=== PATIENT | male | born 1960 | race Two or more races ===

== ENCOUNTER 2024-08-10 15:24 | Inpatient (IN) | payer MEDICAID, SELFPAY ==
[2024-08-10] VITALS (7 sets, daily range): BP systolic 125–153; BP diastolic 71–87; PULSE 73–88; RESP 12–19; TEMP 36–36.9; O2SAT 96–98; BMI 35.4
--- NOTE | 2024-08-10 16:00 | PC.NURSE ---
stroke consult Case # [id number]?
--- NOTE | 2024-08-10 16:01 | XR_ITS ---
Examination: CTA carotids with intravenous contrast CTA brain, head with intravenous contrast. 2-D sagittal, coronal reconstructions. 3-D reconstructions. Exam date and time: August 10, 2024 1626 hrs. Indications: Stroke alert, onset focal neurologic deficit today CTDI: vol (mGy) 54.7 DLP: (mGycm) 513 Technique: Multiple CTA axial brain, head carotid images post intravenous contrast injection 100 cc, Isovue-370. 2-D sagittal, coronal reconstructions. 3-D reconstructions, 3-D post processing including vascular maximum intensity projection images. Low dose protocols were performed. One or more of the following dose reduction techniques were used; automated exposure control, adjustment of the mA and/or KV according to patient size, use of iterative reconstruction technique. Findings: No thoracic aortic aneurysmal dilatation Common carotid arteries carotid bifurcations and internal carotid arteries do not demonstrate significant stenoses Dominant left vertebral artery, no critical vertebral artery stenoses in the neck Intracranial vertebral arteries basilar artery and posterior cerebral branches fill with no large vessel occlusions. Juxtasellar supraclinoid portions of the internal carotid arteries intact. M1 segments middle cerebral arteries middle cerebral artery trifurcation vessels and pericallosal vessels demonstrate no large vessel occlusions Impression: No significant neck arterial stenoses No cerebral large vessel arterial occlusions noted
--- NOTE | 2024-08-10 16:01 | EKG_ITS ---
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
--- NOTE | 2024-08-10 16:01 | XR_ITS ---
Examination: CT brain head without contrast. 2-D sagittal coronal reconstructions Date and time of exam:August 10, 2024 1608 hrs. Indications: Stroke alert, onset focal neurologic deficit today CTDI: vol (mGy):57 DLP: (mGycm):1115 Technique: Multiple CT axial sections of the brain have been obtained, 5 mm slice thickness. Contrast has not been administered. 2-D sagittal, coronal reconstructions have been obtained Low dose protocols were performed. One or more of the following dose reduction techniques were used; automated exposure control, adjustment of the mA and/or KV according to patient size, use of iterative reconstruction technique. Findings: No significant ventricular enlargement. Intra-axial or extra-axial hemorrhage density is not seen. No mass effect or midline shift Basal cisterns are not remarkable. Fourth ventricle is midline. Cranial vault intact. Impression: Negative for acute hemorrhage, mass effect or midline shift
--- NOTE | 2024-08-10 16:13 | PD.EDADULT ---
ED General RME/HPI General Chief complaint: Neuro Symptoms/Deficit Stated complaint: DIZZY, BLURRY VISION, TONGUE NUMBNESS Time Seen by Provider: 08/10/24 16:00 Arrival date/time: 08/10/24 15:24 Limitations: no limitations RME / HPI RME / HPI narrative: DR. BOLANOS MAIN ED EVALUATION: 63 year old male with past medical history significant for epilepsy presents to the Emergency Department with complaints of right facial weakness, right eyelid weakness, right facial droop, and diffuse tongue numbness. Last well known time was 10 AM today. Blood glucose was 224 here. No other symptoms reported at this time. Related Data Home Medications ?Medication ?Instructions ?Recorded ?Confirmed levetiracetam 1,000 mg tablet 1,500 mg PO BID 02/01/19 06/02/22 (Keppra) metformin 1,000 mg tablet 1,000 mg PO BID 02/01/19 06/02/22 sitagliptin phosphate 50 mg tablet 50 mg PO QDAY 12/22/21 06/02/22 (Januvia) glimepiride 2 mg tablet 2 mg PO DAILY 05/17/22 06/02/22 propranolol 10 mg tablet 10 mg PO DAILY 05/17/22 06/02/22 Previous Rx's ?Medication ?Instructions ?Recorded pantoprazole 40 mg tablet,delayed 40 mg PO BID #180 tabs 12/23/21 release (Protonix) ciprofloxacin HCl 500 mg tablet 500 mg PO BID #14 tabs 10/27/22 metronidazole 500 mg tablet 500 mg PO BID #14 tabs 10/27/22 doxycycline hyclate 100 mg tablet 100 mg PO BID #14 tabs 02/02/23 fluconazole 150 mg tablet 150 mg PO Q3D 2 doses #2 tabs 02/02/23 Allergies Allergy/AdvReac Type Severity Reaction Status Date / Time cat dander Allergy Intermediate Watery Eye Verified 02/02/23 10:25 Penicillins Allergy Intermediate Rash Verified 02/02/23 10:25 Review of Systems Review of Systems Systems Reviewed: All systems reviewed, normal except as documented Past Medical History Past Medical History NEUROLOGIC: Positive Neurological Disorders and Seizures CARDIAC: Positive Cardiac Disorders, Hypercholesterolemia and Hypertension RESPIRATORY: Positive Pneumonia GASTROINTESTINAL: Positive Gastrointestinal Disorders, Pancreatitis and Ulcer MUSCULOSKELETAL: Positive Musculoskeletal Disorders and Arthritis ENDOCRINE: Positive Endocrine Disorders and Diabetes Mellitus Type 2 OTHER HISTORY: Positive Chicken Pox, Measles and Mumps Family History FAMILY HISTORY: Positive Family Cancer Surgical History SURGICAL: Positive Oral Surgery, Tonsillectomy and Adenoidectomy Social History SMOKING STATUS: Never smoker SUBSTANCE USE: does not use ALCOHOL: Never ED Exam General Limitations: Present no limitations General appearance: Present alert and in no apparent distress Head Head exam: Present atraumatic, normocephalic and normal inspection Eye Eye exam: Present normal appearance, PERRL and EOMI; Absent nystagmus ENT ENT exam: Present normal exam, normal oropharynx and mucous membranes moist Neck Neck exam: Present normal inspection, full ROM and trachea midline Chest Chest inspection: Present normal inspection and symmetric chest wall rise Respiratory Respiratory exam: Present normal lung sounds bilaterally Cardiovascular Cardiovascular exam: Present regular rate, normal rhythm and normal heart sounds Abdominal Exam Abdominal exam: Present soft and normal bowel sounds Extremities Exam Extremities exam: Present normal inspection and full ROM Back Exam Back exam: Present normal inspection and full ROM Neurological Exam Neurological exam: Present alert, oriented X3 and other (right facial weakness, right eyelid weakness, right facial droop) Expanded Neurological Exam Patient oriented to: Present person, place and time Speech: Present fluid speech Cerebellar function: Normal: finger to nose and heel to marques Motor strength - LUE: 5/5 Motor strength - RUE: 5/5 Motor strength - LLE: 5/5 Motor strength - RLE: 5/5 Psychiatric Psychiatric exam: Present normal affect and normal mood Skin Skin exam: Present warm, dry, intact and normal color Course Course Course Narrative: 1558: Stroke alert initiated. Orders made at this time are congruent stroke protocol. Quality Measures none Orders Category Date Time Status Bedside Blood Glucose NOW Care 08/10/24 16:01 Completed COVID-19 Screening Questionnaire NOW Care 08/10/24 17:18 Active Agriculture Teacher NOW Care 08/10/24 16:01 Active Continuous Pulse Oximetry NOW Care 08/10/24 16:01 Completed Decision to Admit X1 Care 08/10/24 17:18 Active EKG (ED ONLY) *Do not use* NOW Care 08/10/24 16:01 Completed In and Out Catheter NEEDED Care 08/10/24 16:01 Active Insert IV NOW Care 08/10/24 16:01 Active NIH Stroke Scale now Care 08/10/24 16:01 Active NPO NOW Care 08/10/24 16:01 Active Neuro Check Q15MIN Care 08/10/24 16:01 Active Nurse Swallow Screen x1 Care 08/10/24 16:01 Active Consult to Neurology / Tele-Neurology Routine Cons 08/10/24 16:[address] angio stroke protocol Stat Exams 08/10/24 16:[address] stroke protocol Stat Exams 08/10/24 16:01 Completed EKG (ED Only) Stat Exams 08/10/24 16:01 Draft Alcohol, Blood Medical Stat Lab 08/10/24 16:00 Completed Arterial Blood Gas Stat Lab 08/10/24 16:48 Completed B-Type Natriuretic Peptide Stat Lab 08/10/24 16:00 Completed CBC Stat Lab 08/10/24 16:40 Completed Comprehensive Metabolic Panel Stat Lab 08/10/24 16:00 Completed Drug Screen,Urine Stat Lab 08/10/24 16:01 Ordered Magnesium Stat Lab 08/10/24 16:00 Completed Partial Thromboplastin Time Stat Lab 08/10/24 16:00 Completed Prothrombin Time with INR Stat Lab 08/10/24 16:00 Completed Troponin I Stat Lab 08/10/24 16:00 Completed Urinalysis Stat Lab 08/10/24 16:01 Ordered Urine Culture Stat Lab 08/10/24 16:01 Ordered Dexamethasone Inj [Decadron Inj] Med 08/10/24 16:35 Discontinued 10 mg .ROUTE .STK-MED ONE Dexamethasone Inj [Decadron Inj] Med 08/10/24 16:39 Discontinued 10 mg IVP X1 ONE DiphenhydrAMINE INJ [Benadryl Inj] Med 08/10/24 16:39 Discontinued 25 mg IVP X1 ONE DiphenhydrAMINE INJ [Benadryl Inj] Med 08/10/24 16:36 Discontinued 50 mg .ROUTE .STK-MED ONE Famotidine Inj [Pepcid Inj] Med 08/10/24 16:35 Discontinued 20 mg .ROUTE .STK-MED ONE Famotidine Inj [Pepcid Inj] Med 08/10/24 16:39 Discontinued 20 mg IVP X1 ONE Ondansetron Inj [Zofran Inj] Med 08/10/24 16:00 Active 4 mg IVP Q4HR PRN Sodium Chloride 0.9% 1000 ml [Ns] 1,000 ml Med 08/10/24 16:00 Active IV 100 mls/hr Oxygen Delivery NOW RT 08/10/24 17:10 Active Vital Signs Vital signs: Vital Signs Temperature 98.4 F 08/10/24 15:48 Pulse Rate 85 08/10/24 15:48 Respiratory Rate 19 08/10/24 15:48 Blood Pressure 127/83 08/10/24 15:48 Pulse Oximetry (%) 96 08/10/24 15:48 Oxygen Delivery Method Room Air 08/10/24 15:48 Critical Care Time Critical Care Time Critical Care Time: Yes Total Critical Care Time (min.): 45 Attestation: The high probability of sudden, clinically significant deterioration in the patient?s condition required the highest level of my preparedness to intervene urgently. The services I provided to this patient were to treat and/or prevent clinically significant deterioration. Services included the following: chart data review, reviewing nursing notes and/or old charts, documentation time, telesales consultant collaboration regarding findings and treatment options, medication orders and management, direct patient care, vital sign assessments and ordering, interpreting and reviewing diagnostic studies and lab tests. Aggregate critical care time includes only time during which I was engaged in work directly related to the patient?s care, as described above, whether at bedside or elsewhere in the Emergency Department. It did not include time spent performing other reported procedures or the services of residents, students, nurses or physician assistants. Discharge Plan Plan Patient Disposition: Admit Acute Care w/in Hospital Prescriptions/Referrals Prescriptions/Med Rec: No Action metformin 1,000 mg Tablet 1,000 mg PO BID levetiracetam [Keppra] 1,000 mg Tablet 1,500 mg PO BID fluconazole 150 mg tablet 150 mg PO Q3D Qty: 2 0RF doxycycline hyclate 100 mg tablet 100 mg PO BID Qty: 14 0RF Januvia 50 mg Tablet 50 mg PO QDAY pantoprazole [Protonix] 40 mg Tablet,Delayed Release (Dr/Ec) 40 mg PO BID Qty: 180 0RF glimepiride 2 mg tablet 2 mg PO DAILY propranolol 10 mg tablet 10 mg PO DAILY ciprofloxacin HCl 500 mg tablet 500 mg PO BID Qty: 14 0RF metronidazole 500 mg tablet 500 mg PO BID Qty: 14 0RF Referrals: No Primary/Family,Physician [Primary Care Provider] - In 1 week Problem List Clinical Impression: TIA (transient ischemic attack), Right-sided Calles's palsy, Cerebrovascular accident Patient/Caregiver Discharge Instructions Print Language: Djiboutian Stand Alone Forms: Fabienne Award Info., Patient Portal Info Letter MDM Narrative MDM hospital course: I, Robyn Wilkins, karin scribing for and in the presence of Dr. Bolanos. Clinical Information Provided by patient Medical Records Reviewed [facility] Meds/Rx Considered, not Ordered None Labs/Rad/Tests considered, not Ordered None Chronic Illness/Social Conditions Add or document further as needed: epilepsy EKG Interpretation EKG #1: Date/time of EK08/10/24 1651 hours EKG interpretation: sinus rhythm, rate 87, minimum ST depression, no STEMI, DE interval 167 ms, QRS duration 83 ms, QT/QTc 370/414, P-R-T axis 61, 17, 47 Imaging Radiology reports / interpretation(s): Procedure(s): CT angio stroke protocol Accession Number(s): [id number] cc: Adeel Bolanos MD; Caio Rankin MD; NO PRIMARY/FAMILY,PHYSICIAN~ Examination: CTA carotids with intravenous contrast CTA brain, head with intravenous contrast. 2-D sagittal, coronal reconstructions. 3-D reconstructions. Exam date and time: August 10, 2024 1626 hrs. Indications: Stroke alert, onset focal neurologic deficit today CTDI: vol (mGy) 54.7 DLP: (mGycm) 513 Technique: Multiple CTA axial brain, head carotid images post intravenous contrast injection 100 cc, Isovue-370. 2-D sagittal, coronal reconstructions. 3-D reconstructions, 3-D post processing including vascular maximum intensity projection images. Low dose protocols were performed. One or more of the following dose reduction techniques were used; automated exposure control, adjustment of the mA and/or KV according to patient size, use of iterative reconstruction technique. Findings: No thoracic aortic aneurysmal dilatation Common carotid arteries carotid bifurcations and internal carotid arteries do not demonstrate significant stenoses Dominant left vertebral artery, no critical vertebral artery stenoses in the neck Intracranial vertebral arteries basilar artery and posterior cerebral branches fill with no large vessel occlusions. Juxtasellar supraclinoid portions of the internal carotid arteries intact. M1 segments middle cerebral arteries middle cerebral artery trifurcation vessels and pericallosal vessels demonstrate no large vessel occlusions Impression: No significant neck arterial stenoses No cerebral large vessel arterial occlusions noted Dictated By: Caio Rankin MD Procedure(s): CT stroke protocol Accession Number(s): [id number] cc: Adeel Bolanos MD; Caio Rankin MD; NO PRIMARY/FAMILY,PHYSICIAN~ Examination: CT brain head without contrast. 2-D sagittal coronal reconstructions Date and time of exam:August 10, 2024 1608 hrs. Indications: Stroke alert, onset focal neurologic deficit today CTDI: vol (mGy):57 DLP: (mGycm):1115 Technique: Multiple CT axial sections of the brain have been obtained, 5 mm slice thickness. Contrast has not been administered. 2-D sagittal, coronal reconstructions have been obtained Low dose protocols were performed. One or more of the following dose reduction techniques were used; automated exposure control, adjustment of the mA and/or KV according to patient size, use of iterative reconstruction technique. Findings: No significant ventricular enlargement. Intra-axial or extra-axial hemorrhage density is not seen. No mass effect or midline shift Basal cisterns are not remarkable. Fourth ventricle is midline. Cranial vault intact. Impression: Negative for acute hemorrhage, mass effect or midline shift Dictated By: Caio Rankin MD Medication Administration(s) Medication Administration History Sodium Chloride (Ns) 1,000 mls @ 100 mls/hr IV .Q10H JASMYNE Stop: 09/09/24 15:59 Last Admin: 08/10/24 16:49 Dose: 100 mls/hr Documented By: ROYER Ondansetron HCl (Ondansetron Inj 2 Mg/Ml Inj 2 Ml) 4 mg IVP Q4HR PRN PRN Reason: NAUSEA OR VOMITING Stop: 09/09/24 15:59 Discontinued Medications Dexamethasone Sodium Phosphate (Dexamethasone Sod Phos Inj 10 Mg/Ml Vial) 10 mg IVP X1 ONE Stop: 08/10/24 16:40 Last Admin: 08/10/24 16:47 Dose: 10 mg Documented By: EF Dexamethasone Sodium Phosphate (Dexamethasone Sod Phos Inj 10 Mg/Ml Vial) Confirm Administered Dose 10 mg .ROUTE .STK-MED ONE Stop: 08/10/24 16:36 Last Admin: 08/10/24 16:46 Dose: Not Given Documented By: EF Non-Admin Reason: Override Medication Diphenhydramine HCl (Diphenhydramine Inj 50 Mg/Ml Vial) 25 mg IVP X1 ONE Stop: 08/10/24 16:40 Last Admin: 08/10/24 16:47 Dose: 25 mg Documented By: EF Comments: Diphenhydramine HCl (Diphenhydramine Inj 50 Mg/Ml Vial) Confirm Administered Dose 50 mg .ROUTE .STTHE MELT-MED ONE Stop: 08/10/24 16:37 Last Admin: 08/10/24 16:46 Dose: Not Given Documented By: EF Non-Admin Reason: Override Medication Famotidine (Famotidine Inj 10 Mg/Ml Vial 2 Ml) 20 mg IVP X1 ONE Stop: 08/10/24 16:40 Last Admin: 08/10/24 16:47 Dose: 20 mg Documented By: EF Famotidine (Famotidine Inj 10 Mg/Ml Vial 2 Ml) Confirm Administered Dose 20 mg .ROUTE .[employer]-MED ONE Stop: 08/10/24 16:36 Last Admin: 08/10/24 16:46 Dose: Not Given Documented By: EF Non-Admin Reason: Override Medication Consultations/Discussions re: Management Consult #1: Date/time: 08/10/24 5:15 pm Physician, specialty, service, details: Discussed test HPI, PMHx, lab, radiology results and/or management with resident working with the hospitalist. Will admit for further evaluation and management. Accepts patient for admission. Diagnosis Differential diagnosis: TIA, CVA, brain bleed Most likely dx, and/or detailed dx discussion: CVA TIA Right-sided Calles's palsy Dispositon Disposition: Admit
--- NOTE | 2024-08-10 16:30 | PRELIM_ITS ---
CT scan of the head without intravenous contrast (axial sections with sagittal, coronal and 3D reformats) August 10, 2024 1606 hours Clinical history: Focal neuro deficit, stroke suspected. Comparison: None. Findings: There is no evidence of intracranial hemorrhage, mass effect or midline shift. There is encephalomalacia in bilateral basifrontal and left anterior temporal lobes, which may be related to old trauma or infarcts. There are periventricular white matter hypodensities, compatible with chronic small vessel ischemia. There is mild volume loss. The calvarium is unremarkable. The mastoid air cells and the visualized paranasal sinuses are clear. Impression: No evidence of intracranial hemorrhage, mass effect or midline shift. If there are persistent clinical symptoms or additional clinical concerns, consider MRI. Encephalomalacia in bilateral basifrontal and left anterior temporal lobes, which may be related to old trauma or infarcts. Chronic small vessel ischemia and volume loss. Discussion Details: Results verbally communicated to Leroy Hussein RN at 19:27 PM ET 08/10/2024. A call back number was provided for a Physician to Physician call communication. Report Electronically Signed By: Catherine Chow 08/10/2024 4:30:03 PM [EST]
[2024-08-10 16:37] LABS: INR 1.4 (0.9-1.3); Partial Thromboplastin Time 20.7 Seconds (22.0-36.0); Prothrombin Time 15.1 Seconds (9.0-12.2)
[2024-08-10 16:38] LABS: B-Type Natriuretic Peptide 60 pg/mL (0-100)
[2024-08-10 16:39] LABS: Alanine Aminotransferase 48 U/L (10-49); Albumin, Serum 3.9 gm/dL (3.4-4.8); Albumin/Globulin Ratio 1.4 (1.2-2.2); Alcohol, Blood Medical < 3.0 mg/dL (0-10.0); Alkaline Phosphatase 113 U/L (46-116); Anion Gap 11 (7-16); BUN/Creatinine Ratio 11 Ratio (12-20); Blood Urea Nitrogen 9 mg/dL (9-23); Calcium 8.6 mg/dL (8.3-10.6); Calcium (Corrected) 8.7 mg/dL (8.5-10.1); Carbon Dioxide 21.9 mMol/L (20.0-31.0); Chloride 107 mMol/L (98-107); Creatinine (Component) 0.8 mg/dL (0.6-1.3); Estimated Creatinine Clearance 91.7 mL/min (>60); Globulin 2.8 gm/dL (2.3-3.5); Glucose 253 mg/dL (74-106); Magnesium 1.9 mg/dL (1.6-2.6); Osmolality,Calculated 287 (275-295); Potassium 4.1 mMol/L (3.4-5.1); Sodium 140 mMol/L (136-145); Total Protein 6.7 gm/dL (5.7-8.2); Troponin I < 0.002 ng/mL (0.0-0.045); eGFR > 60 See Note
[2024-08-10] MEDS: DiphenhydrAMINE INJ 50 MG/ML VIAL 25 MG IVP (16:47)
[2024-08-10] MEDS: FAMOTIDINE INJ 10 MG/ML VIAL 2 ML 20 MG IVP (16:47)
[2024-08-10] MEDS: DEXAMETHASONE SOD PHOS INJ 10 MG/ML VIAL IVP (16:47)
[2024-08-10] MEDS: SODIUM CHLORIDE 0.9% 1000 ML 1,000 ML 100 ML IV ×2 (16:49→23:22)
[2024-08-10 16:50] LABS: Basophils % (Auto) 1 % (0-2.5); Eosinophils # (Auto) 0.1 Thou/mm3 (0.0-0.5); Eosinophils % (Auto) 3 % (0-10); Hemoglobin 12.3 g/dL (13.5-16.0); Immature Granulocytes % (Auto) 0 % (0-0); Immature Granulocytes Auto 0.01 Thou/mm3 (0.00-0.00); Lymphocytes # (Auto) 1.7 Thou/mm3 (1.0-4.8); Lymphocytes % (Auto) 42 % (10-50); Mean Corpuscular HGB Conc 36.2 g/dl (31.0-37.0); Mean Corpuscular Hemoglobin 32.7 pg (25.0-35.0); Mean Corpuscular Volume 90 fL (80-100); Monocytes # (Auto) 0.6 Thou/mm3 (0.0-0.8); Monocytes % (Auto) 14 % (0-12); Neutrophils # (Auto) 1.5 Thou/mm3 (1.8-7.7); Neutrophils % (Auto) 39 % (37-80); Nucleated Red Blood Cell % 0 /100 WBC (0); RDW Standard Deviation 43.7 fL (35.1-43.9); Red Blood Count 3.76 Miln/mm3 (4.50-5.90); White Blood Count 3.9 Thou/mm3 (3.8-10.6)
[2024-08-10 17:00] LABS: Base Excess -3 (-3-3); HCO3 23 mEq/L (20-26); Inspired Oxygen, FIO2 21 %; O2 Saturation 76 % (91-98); PCO2 45 mmHg (32.0-48.0); pH, Arterial 7.32 (7.35-7.45)
[2024-08-10 17:04] LABS: Allen Test Performed/OK; PO2 42 mmHg (83-108); Puncture Site Right Radial
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
[2024-08-10 17:13] LABS: Platelet Count 76 Thou/mm3 (140-440); Slide Review Platelets confirmed
[2024-08-10 17:34] LABS: Collection Type, Urine Catheter; Squamous Epithelial Cell,Urine 0 /hpf (0-5); WBC,Urine 0 /hpf (0-5)
[2024-08-10 17:38] LABS: Bilirubin,Urine Negative (Negative); Blood,Urine Negative (Negative); Clarity,Urine Clear (Clear/Hazy); Color,Urine Lt-Yellow (Lt Yel-Yel); Glucose, Urine 4+ (Negative); Ketones,Urine Negative (Negative); Leukocyte Esterase,Urine Negative (Negative); Nitrite,Urine Negative (Negative); Protein,Urine Negative (Neg - Trace); RBC,Urine 1 /hpf (0-3); Specific Gravity,Urine 1.036 (1.001-1.035); Urobilinogen,Urine Negative mg/dL (0.0-1.0)
[2024-08-10 17:46] LABS: Amphetamine/Methamp Scrn,U Negative (Negative); Barbiturate Screen,Urine Negative (Negative); Benzodiazepines Screen,Urine Negative (Negative); Benzoylecgonine Screen, Ur Negative (Negative); Fentanyl Screen,Urine Negative (Negative); Opiate Screen,Urine Negative (Negative); THC Screen,Urine Negative (Negative)
--- NOTE | 2024-08-10 18:07 | ECHO_ITS ---
Transthoracic Echo Report Ht (in): 63 Wt (lb): 200 Exam Location: Echo Lab Status: Emergency Patient Care Secretary: Tamera Alfaro Indications: Procedure Performed: BP: 132 / 72 HR: 72 Technical Quality: Technically difficult study MEASUREMENTS (Male / Female) Normal Values 2D ECHO LV Diastolic Diameter PLAX 4.7 cm 4.2 - 5.9 / 3.9 - 5.3 cm LV Systolic Diameter PLAX 2.9 cm IVS Diastolic Thickness 1.1 cm 0.6 - 1.0 / 0.6 - 0.9 cm LVPW Diastolic Thickness 1.0 cm 0.6 - 1.0 / 0.6 - 0.9 cm LV Relative Wall Thickness 0.4 LVOT Diameter 1.8 cm M-MODE Aortic Root Diameter MM 2.3 cm LA Systolic Diameter MM 3.6 cm LA Ao Ratio MM 1.6 AV Cusp Separation MM 1.9 cm DOPPLER PV Peak Velocity 122.0 cm/s PV Peak Gradient 6.0 mmHg FINDINGS Left Ventricle Normal left ventricular size, wall thickness, systolic function with no obvious regional wall motion abnormalities. Normal left ventricular diastolic filling pattern for age. The ejection fraction is visually estimated at 55-60 %. Right Ventricle The right ventricle is normal in size and systolic function. Left Atrium The left atrium is normal by two-dimensional, color flow and Doppler imaging with no structural abnormalities, no thrombus formation present. Right Atrium The right atrium is normal by two-dimensional imaging, color flow and Doppler imaging with no structural abnormalities, no thrombus formation present. Atrial Septum The interatrial septum appears normal with no evidence of a shunt. Aorta The aorta is normal by two-dimensional, color flow and Doppler interrogation. Mitral Valve The mitral valve is normal by two-dimensional, color flow and Doppler interrogation. Trace mitral regurgitation. Aortic Valve The aortic valve is trileaflet and normal by two-dimensional, color flow and Doppler interrogation. There is no significant aortic valve regurgitation. Tricuspid Valve The tricuspid valve is normal by two-dimensional, color flow and Doppler interrogation. There is trace tricuspid valve regurgitation. Pulmonic Valve The pulmonic valve is not well visualized. There is no significant pulmonic valve regurgitation. Vessels The pulmonary artery appears normal. The inferior vena cava pulmonary and hepatic veins appear normal. Pericardium The pericardium is normal by two-dimensional imaging. There is no significant pericardial effusion. CONCLUSIONS Indication: Stroke R/O bubble study No evidence of PFO Negative Bubble study Normal LV size and function. Normal left ventricular diastolic function. Estimated at 55-60 %. The RV is normal in size and systolic function. Trace MR and TR. Debbi Hensley (Electronically Signed) Final Date: 12 August 2024 17:08
--- NOTE | 2024-08-10 18:21 | PD.RESHP ---
Documentation for date of: 08/10/24 [facility] History of Present Illness History of present illness: 63-year-old male with a past medical history of diabetes and seizure disorder, presenting from home with complaints of right-sided weakness and numbness that began this morning. The patient reported that upon waking, he noticed right ear pain, a headache, and numbness on the right side of his face, along with weakness in his right upper and lower extremities. While drinking coffee, he also noted numbness on the right side of his tongue. He denied any nausea, vomiting, loss of consciousness, drooling, or speech disturbances. He has no prior history of stroke or similar symptoms. The patient has a history of seizure disorder and takes Keppra; however, he has not experienced a seizure in the past 10 years. On presentation, the patient was hemodynamically stable. A stroke alert was initiated, and a teleneurology consultation was requested. CT head imaging was negative for hemorrhagic stroke, mass effect, or midline shift. CTA was also negative for large vessel occlusion . The patient was not a candidate for tPA, as the last well-known time was greater than 4 hours prior to presentation. Teleneurology recommended admission for further stroke workup, including MRI. Laboratory results were significant for anemia (hemoglobin 12.2) and thrombocytopenia (platelets 74), while the remainder of the CMP was within normal limits. Past medical history as above Past surgical history none Allergies penicillins Medications, metformin, Januvia, Keppra Social history denies smoking, alcohol, lives with his son Exam Vital Signs Temp Pulse Resp BP Pulse Ox O2 Del Method O2 Flow Rate 98.4 F 77 12 127/83 98 Room Air 2 08/10/24 15:48 08/10/24 18:08 08/10/24 18:08 08/10/24 15:48 08/10/24 18:08 08/10/24 15:48 08/10/24 18:08 Narrative Exam GENERAL: no acute distress, AAO x3, well nourished. HEENT: Head AT/ NC. Mucous membranes moist. NECK: Supple, no lymphadenopathy, no carotid bruits. CARDIOVASCULAR: RRR. Normal S1/S2, No m/r/g. No pitting edema of bilateral LEs. RESPIRATORY: CTAB. No wheezing, rhonchi, crackles. GASTROINTESTINAL: Abdomen soft, non tender no palpable masses. Bowel sounds present in all 4 quadrants. MUSCULOSKELETAL:? No cyanosis or edema, no visible joint swelling. NEUROLOGICAL: Right lower facial droop, sensation decreased in the right side of the face, strength normal on left side, slightly decreased on the right side. decreased light touch, pinprick and proprioception on right face, finger/nose/finger intact. PSYCHIATRIC: Awake and alert, not agitated, normal mood and affect. INTEGUMENTARY: No obvious rashes, no jaundice, normal turgor. Results: Labs 08/10/24 16:40 08/10/24 16:00 Labs: Short CBC 08/10/24 Range/Units 16:40 WBC 3.9 (3.8-10.6) Thou/mm3 Hgb 12.3 L (13.5-16.0) g/dL Hct 34.0 L (41.0-53.0) % Plt Count 76 L (140-440) Thou/mm3 BMP 08/10/24 16:00 Sodium 140 Potassium 4.1 Chloride 107 Carbon Dioxide 21.9 BUN 9 Creatinine 0.8 Glucose 253 H Calcium 8.6 Cardiac Enzymes 08/10/24 Range/Units 16:00 Troponin I < 0.002 (0.0-0.045) ng/mL Liver Function 08/10/24 Range/Units 16:00 Total Bilirubin 1.0 (0.3-1.2) mg/dL ALT 48 (10-49) U/L Alkaline Phosphatase 113 (46-116) U/L Albumin 3.9 (3.4-4.8) gm/dL Urine 08/10/24 Range/Units 17:22 Urine Color Lt-Yellow (Lt Yel-Yel) Urine Clarity Clear (Clear/Hazy) Urine pH 6.0 (5.0-7.0) Ur Specific Spreckels 1.036 H (1.001-1.035) Urine Protein Negative (Neg - Trace) Urine Glucose (UA) 4+ A (Negative) ABG Interpretation ABG results: 08/10/24 16:48 ABG pH 7.32 L ABG pCO2 45 ABG pO2 42 L* ABG HCO3 23 ABG O2 Saturation 76 L ABG Base Excess -3 Quality Measures Quality Measures none Advance care planning discussed with:: patient Medications Home Medications and Allergies Home Medications ?Medication ?Instructions ?Recorded ?Confirmed ?Type levetiracetam 1,000 mg tablet 1,500 mg PO BID 02/01/19 06/02/22 History (Keppra) metformin 1,000 mg tablet 1,000 mg PO BID 02/01/19 06/02/22 History sitagliptin phosphate 50 mg tablet 50 mg PO QDAY 12/22/21 06/02/22 History (Januvia) glimepiride 2 mg tablet 2 mg PO DAILY 05/17/22 06/02/22 History propranolol 10 mg tablet 10 mg PO DAILY 05/17/22 06/02/22 History Allergies Allergy/AdvReac Type Severity Reaction Status Date / Time cat dander Allergy Intermediate Watery Eye Verified 02/02/23 10:25 Penicillins Allergy Intermediate Rash Verified 02/02/23 10:25 Visit Medications Acetaminophen (Acetaminophen 325 Mg Tablet) 650 mg PO Q6H PRN PRN Reason: PAIN OR FEVER > 101 Stop: 09/09/24 18:06 Aspirin (Aspirin Ec 81 Mg Tabec) 81 mg PO QDAY [facility] Stop: 09/10/24 08:59 Atorvastatin Calcium (Atorvastatin Calcium 20 Mg Tablet) 40 mg PO HS JASMYNE Stop: 09/09/24 20:59 Dextrose (Dextrose 50%-Water Inj 50 Ml Syringe) 25 ml IV Q15MIN PRN PRN Reason: BG 50-70 responsive npo pt Stop: 09/09/24 18:12 Dextrose (Dextrose 50%-Water Inj 50 Ml Syringe) 50 ml IV Q15MIN PRN PRN Reason: BG <50 OR BG <70 & pt unresponsive Stop: 09/09/24 18:12 Glucagon (Glucagon Inj 1 Mg Vial) 1 mg IM Q15MIN PRN PRN Reason: BG <70, and no IV access Sodium Chloride (Ns) 1,000 mls @ 100 mls/hr IV .Q10H JASMYNE Stop: 09/09/24 15:59 Last Admin: 08/10/24 16:49 Dose: 100 mls/hr Insulin Human Lispro (Insulin Lispro (Admelog) 1 Unit/0.01 Ml Unit) 0 unit SC Q6HR JASMYNE; Protocol Stop: 09/10/24 00:00 Labetalol HCl (Labetalol Inj 5 Mg/Ml Vial 20 Ml) 10 mg IVP Q6H PRN PRN Reason: hypertension Stop: 09/09/24 18:14 Levetiracetam (Levetiracetam Inj 100 Mg/Ml Vial 5ml) 1,000 mg IVP Q12HR JASMYNE Stop: 09/09/24 20:59 Ondansetron HCl (Ondansetron Inj 2 Mg/Ml Inj 2 Ml) 4 mg IVP Q4HR PRN PRN Reason: NAUSEA OR VOMITING Stop: 09/09/24 15:59 Pantoprazole Sodium (Pantoprazole Inj 40 Mg Vial) 40 mg IVP QDAY JASMYNE Stop: 09/10/24 08:59 Discontinued Medications Aspirin (Aspirin 300 Mg Supp) 300 mg UT X1 ONE Stop: 08/10/24 18:08 Dexamethasone Sodium Phosphate (Dexamethasone Sod Phos Inj 10 Mg/Ml Vial) 10 mg IVP X1 ONE Stop: 08/10/24 16:40 Last Admin: 08/10/24 16:47 Dose: 10 mg Diphenhydramine HCl (Diphenhydramine Inj 50 Mg/Ml Vial) 25 mg IVP X1 ONE Stop: 08/10/24 16:40 Last Admin: 08/10/24 16:47 Dose: 25 mg Famotidine (Famotidine Inj 10 Mg/Ml Vial 2 Ml) 20 mg IVP X1 ONE Stop: 08/10/24 16:40 Last Admin: 08/10/24 16:47 Dose: 20 mg Assessment & Plan Plan 63-year-old male with past medical history of diabetes, seizure on Keppra was presented with chief complaints of dizziness, right-sided weakness and was admitted for stroke workup #Dizziness #Right-sided weakness/numbness #Right facial droop Patient presented with chief complaints of dizziness, right-sided weakness and numbness Physical exam :right lower facial droop, sensation decreased in the right side of the face, strength normal on left side, slightly decreased on the right side. Decreased light touch, pinprick and proprioception on right face, NIHH score was 5 CT head was negative for hemorrhage, mass or midline shift CTA was negative for LVO Activate stroke protocol order set NIHSS score 5 Patient is not a candidate for Thrombolytic therapy,LWK above 4.5 hours. -Admit to telemetry -Neurochecks every 4 -Permissive hypertension -Seizure precaution -Head of bed elevation 30 degree -N.p.o. for now -Bedside swallow evaluation -Aspirin 81 mg daily -Lipitor 40 mg daily -Tylenol as needed to avoid hyperthermia -Euglycemia state -Hemoglobin A1c ordered, follow-up with results -MRI without contrast -Echo ordered -Dr Fajardo was consulted, recommendations appreciated -Physical therapy evaluation. -DVT prophylaxis with SCDs due to risk of bleeding -Control risk factors such as HTN, HLD -Continue to closely monitor and follow-up with results #History of diabetes Home medication is metformin and Januvia -Insulin sliding scale -Follow-up with A1c #History of seizure -Resume home Keppra -Will follow-up neuro recs Disposition: Telemetry DVT prophylaxis: SCDs GI prophylaxis: PPI Diet: N.p.o. Lines: PIV CODE STATUS:Full code Patient care was discussed with attending physician Dr. Phong Cedillo MD PGY-2 Attending Provider Attestation/Addendum I Ifeoma Darling MD reviewed the note and agree with the resident's assessment & plan with exceptions as below. I have personally reviewed labs, imaging, home meds/prior records, examined the patient, formulated and discussed management plan with the IM team. A 63-year-old M with Hx of DM, seizure disorder and history of GI bleed around 2 years ago presented to ED with right-sided facial droop numbness and relative weakness on right upper and lower extremities. Stroke alert was called however patient did not get tPA due to out of window and thrombocytopenia. CT head and CT head and neck unremarkable. Obtain MRI, echocardiogram and continue with aspirin and high intensity statin therapy. Neurology is on board would likely plan for DAPT for 3 weeks. Additionally would also obtain ultrasound liver to evaluate for thrombocytopenia and clinical stigmata of fatty liver.
--- NOTE | 2024-08-10 18:43 | XR_ITS ---
Examination: Abdomen sonogram, Limited Date and time of exam: August 10, 2024 1914 hours INDICATIONS: Elevated liver function tests on laboratory examination today Technique: Real-time louis scale transabdominal sonographic images of the upper abdomen obtained. Findings: Normal gallbladder Normal common bile duct 0.2 cm Pancreatic head 3.4 cm Liver 16.4 cm irregular contour fatty infiltration Normal hepatopedal portal venous flow Patent IVC IMPRESSION: Normal gallbladder Cirrhosis versus primary hepatocellular disease
[2024-08-10] MEDS: ASPIRIN 81 MG CHEW PO (18:53)
[2024-08-10] MEDS: ATORVASTATIN CALCIUM 20 MG TABLET 40 MG PO (21:57)
[2024-08-10] MEDS: levETIRAcetam INJ 100 MG/ML VIAL 5ML 1000 MG IVP (21:58)
[2024-08-10] MEDS: INSULIN LISPRO (AdmeLOG) 1 UNIT/0.01 ML UNIT SC (23:16)
[2024-08-10] MEDS: ACETAMINOPHEN 325 MG TABLET 650 MG PO (23:52)
[2024-08-11] VITALS (9 sets, daily range): BP systolic 115–132; BP diastolic 64–95; PULSE 72–98; RESP 15–20; TEMP 36.2–36.9; O2SAT 96–99; BMI 37.8
[2024-08-11] MEDS: INSULIN LISPRO (AdmeLOG) 1 UNIT/0.01 ML UNIT SC ×4 (05:12→20:40)
[2024-08-11 06:15] LABS: Basophils % (Auto) 0 % (0-2.5); Eosinophils % (Auto) 0 % (0-10); Hematocrit 36.1 % (41.0-53.0); Hemoglobin 12.6 g/dL (13.5-16.0); Immature Granulocytes % (Auto) 0 % (0-0); Immature Granulocytes Auto 0.02 Thou/mm3 (0.00-0.00); Lymphocytes # (Auto) 1.1 Thou/mm3 (1.0-4.8); Lymphocytes % (Auto) 20 % (10-50); Mean Corpuscular HGB Conc 34.9 g/dl (31.0-37.0); Mean Corpuscular Hemoglobin 32.1 pg (25.0-35.0); Mean Corpuscular Volume 92 fL (80-100); Monocytes # (Auto) 0.1 Thou/mm3 (0.0-0.8); Monocytes % (Auto) 2 % (0-12); Neutrophils # (Auto) 4.3 Thou/mm3 (1.8-7.7); Neutrophils % (Auto) 77 % (37-80); Nucleated Red Blood Cell % 0 /100 WBC (0); Platelet Count 88 Thou/mm3 (140-440); RDW Standard Deviation 43.7 fL (35.1-43.9); Red Blood Count 3.93 Miln/mm3 (4.50-5.90); White Blood Count 5.5 Thou/mm3 (3.8-10.6)
[2024-08-11 07:17] LABS: Alanine Aminotransferase 44 U/L (10-49); Albumin, Serum 3.6 gm/dL (3.4-4.8); Albumin/Globulin Ratio 1.3 (1.2-2.2); Alkaline Phosphatase 97 U/L (46-116); Anion Gap 10 (7-16); BUN/Creatinine Ratio 14 Ratio (12-20); Bilirubin,Total 1.3 mg/dL (0.3-1.2); Blood Urea Nitrogen 10 mg/dL (9-23); Calcium 8.5 mg/dL (8.3-10.6); Calcium (Corrected) 8.8 mg/dL (8.5-10.1); Cardiac Risk Estimate 2.1 RATIO (4.0-6.7); Chloride 109 mMol/L (98-107); Cholesterol 118 mg/dL (132-200); Creatinine (Component) 0.7 mg/dL (0.6-1.3); Estimated Creatinine Clearance 108.6 mL/min (>60); Globulin 2.8 gm/dL (2.3-3.5); Glucose 184 mg/dL (74-106); HDL Cholesterol 55 mg/dL (40-60); LDL Cholesterol,Calculated 53 mg/dL (0-130); Magnesium 1.8 mg/dL (1.6-2.6); Osmolality,Calculated 287 (275-295); Phosphorous 1.9 mg/dL (2.4-5.1); Potassium 4.5 mMol/L (3.4-5.1); Sodium 142 mMol/L (136-145); Thyroid Stimulating Hormone 0.47 uIU/mL (0.55-4.78); Total Protein 6.4 gm/dL (5.7-8.2); Triglycerides 52 mg/dL (30-150); eGFR > 60 See Note
[2024-08-11 07:31] LABS: Glucose Estimated Average 137 mg/dL (80-131); Hemoglobin A1C 6.4 % Hgb (4.8-6.0)
[2024-08-11] MEDS: PANTOPRAZOLE INJ 40 MG VIAL IVP (08:29)
[2024-08-11] MEDS: levETIRAcetam INJ 100 MG/ML VIAL 5ML 1000 MG IVP ×2 (08:29→20:47)
[2024-08-11] MEDS: ASPIRIN EC 81 MG TABEC PO (08:30)
[2024-08-11] MEDS: NAPH,KPH MBDB 1 PACKET (1.5 GM) PO (09:18)
--- NOTE | 2024-08-11 09:20 | PC.SS ---
Patient Jay Burns is a 63 Year old male admitted for Stroke. SS made contact with patient at bedside? to complete initial and discuss discharge disposition. Role and reason for the contact was explained to Patient. Demographic information was verified.? Pt? identified his son, Jay Sabillon as his surrogate decision maker [phone]. He is independent with all ADLs. Patient does not utilize any source of DME, or home O2. Patient?s choice of pharmacy is [facility]. At time of discharge patient will return home, son will provide transportation. Discharge plan: Home Next of Kin: Son Jay Sabillon [phone]
[2024-08-11] MEDS: SODIUM CHLORIDE 0.9% 1000 ML 1,000 ML 100 ML IV ×2 (10:11→21:42)
--- NOTE | 2024-08-11 10:45 | PC.SS ---
SS follow up note; Pending Neuro Rec's. Patient will discharge home when medically cleared.
--- NOTE | 2024-08-11 12:02 | ESPR_ITS ---
<Statement entered by Karla Raygoza MD - 08/23/24 14:04> I reviewed above note and agree with findings and plans. I have also personally examined the patient with medicine team and went over assessment and plan with medical team including pharmacy grad intern and resident physician. Documentation for date of: 08/11/24 Subjective Subjective Interval history: Patient was seen and examined at bedside. No acute overnight events. Patient is still complaining of right side weakness and numbness, however appears to be better compared to yesterday. Still pending stroke workup including MRI, echo, will follow-up with neurorecommendations. Currently patient is on aspirin and atorvastatin, for seizure Keppra restarted. Renal ultrasound was done yesterday with which revealed primary hepatocellular disease possible, labs were reviewed, phosphorus was 1.9 which was replaced Continue current management, follow-up with MRI, echo results, neurorecommendations, PT evaluation. Exam Vital Signs Temp Pulse Resp BP Pulse Ox O2 Del Method O2 Flow Rate 97.1 F 72 16 132/72 H 99 Nasal Cannula 2 08/11/24 08:00 08/11/24 08:00 08/11/24 08:00 08/11/24 08:00 08/11/24 08:00 08/11/24 08:00 08/11/24 08:00 Narrative Exam GENERAL: no acute distress, AAO x3, well nourished. HEENT: Head AT/ NC. Mucous membranes moist. NECK: Supple, no lymphadenopathy, no carotid bruits. CARDIOVASCULAR: RRR. Normal S1/S2, No m/r/g. No pitting edema of bilateral LEs. RESPIRATORY: CTAB. No wheezing, rhonchi, crackles. GASTROINTESTINAL: Abdomen soft, non tender no palpable masses. Bowel sounds present in all 4 quadrants. MUSCULOSKELETAL:? No cyanosis or edema, no visible joint swelling. NEUROLOGICAL: Right lower facial droop, sensation decreased in the right side of the face, strength normal on left side, slightly decreased on the right side. decreased light touch, pinprick and proprioception on right face, finger/nose/finger intact. PSYCHIATRIC: Awake and alert, not agitated, normal mood and affect. INTEGUMENTARY: No obvious rashes, no jaundice, normal turgor. Objective Labs 08/11/24 05:41 08/11/24 05:41 Labs: Laboratory Results - last 24 hr 08/10/24 08/10/24 08/10/24 16:00 16:40 16:48 WBC 3.9 RBC 3.76 L Hgb 12.3 L Hct 34.0 L MCV 90 MCH 32.7 MCHC 36.2 RDW Std Deviation 43.7 Plt Count 76 L Neut % (Auto) 39 Lymph % (Auto) 42 [place] % (Auto) 14 H Eos % (Auto) 3 Baso % (Auto) 1 Neut # (Auto) 1.5 L Lymph # (Auto) 1.7 [place] # (Auto) 0.6 Eos # (Auto) 0.1 Baso # (Auto) 0.0 Immature Gran # (Auto) 0.01 H Absolute Nucleated RBC 0.00 Immature Gran % 0 Nucleated RBC % 0 PT 15.1 H INR 1.4 H APTT 20.7 L Puncture Site Right Radial ABG pH 7.32 L ABG pCO2 45 ABG pO2 42 L* ABG HCO3 23 ABG O2 Saturation 76 L ABG Base Excess -3 FiO2 21 Sodium 140 Potassium 4.1 Chloride 107 Carbon Dioxide 21.9 Anion Gap 11 BUN 9 Creatinine 0.8 Estim Creat Clear Calc 91.7 eGFR > 60 BUN/Creatinine Ratio 11 L Glucose [address] Glu mg/dL Hemoglobin A1c Calculated Osmolality 287 Calcium 8.6 Corrected Calcium 8.7 Phosphorus Magnesium 1.9 Total Bilirubin 1.0 ALT 48 Alkaline Phosphatase 113 Troponin I < 0.002 B-Natriuretic Peptide 60 Total Protein 6.7 Albumin 3.9 Globulin 2.8 Albumin/Globulin Ratio 1.4 Triglycerides Cholesterol LDL Cholesterol, Calc HDL Cholesterol Cholesterol/HDL Ratio TSH Ur Collection Type Urine Color Urine Clarity Urine pH Ur Specific [place] Urine Protein Urine Glucose (UA) Urine Ketones Urine Blood Urine Nitrite Urine Bilirubin Urine Urobilinogen (Auto) Ur Leukocyte Esterase Urine RBC Urine WBC Ur Squamous Epith Cells Urine Bacteria Urine Opiates Screen Urine Fentanyl Screen Ur Barbiturates Screen U Amphetamin/Meth Scrn U Benzodiazepines Scrn U Cocaine Metab Screen U Marijuana (THC) Screen Ethyl Alcohol < 3.0 Misc Test Result Platelets confirmed 08/10/24 08/11/24 17:22 05:41 WBC 5.5 D RBC 3.93 L Hgb 12.6 L Hct 36.1 L MCV 92 MCH 32.1 MCHC 34.9 RDW Std Deviation 43.7 Plt Count 88 L Neut % (Auto) 77 Lymph % (Auto) 20 [place] % (Auto) 2 Eos % (Auto) 0 Baso % (Auto) 0 Neut # (Auto) 4.3 Lymph # (Auto) 1.1 [place] # (Auto) 0.1 Eos # (Auto) 0.0 Baso # (Auto) 0.0 Immature Gran # (Auto) 0.02 H Absolute Nucleated RBC 0.00 Immature Gran % 0 Nucleated RBC % 0 PT INR APTT Puncture Site ABG pH ABG pCO2 ABG pO2 ABG HCO3 ABG O2 Saturation ABG Base Excess FiO2 Sodium 142 Potassium 4.5 Chloride 109 H Carbon Dioxide 23.0 Anion Gap 10 BUN 10 Creatinine 0.7 Estim Creat Clear Calc 108.6 eGFR > 60 BUN/Creatinine Ratio 14 [address] Glu mg/dL 137 H Hemoglobin A1c 6.4 H Calculated Osmolality 287 Calcium 8.5 Corrected Calcium 8.8 Phosphorus 1.9 L Magnesium 1.8 Total Bilirubin 1.3 H ALT 44 Alkaline Phosphatase 97 Troponin I B-Natriuretic Peptide Total Protein 6.4 Albumin 3.6 Globulin 2.8 Albumin/Globulin Ratio 1.3 Triglycerides 52 Cholesterol 118 L LDL Cholesterol, Calc 53 HDL Cholesterol 55 Cholesterol/HDL Ratio 2.1 L TSH 0.47 L Ur Collection Type Catheter Urine Color Lt-Yellow Urine Clarity Clear Urine pH 6.0 Ur Specific [place] 1.036 H Urine Protein Negative Urine Glucose (UA) 4+ A Urine Ketones Negative Urine Blood Negative Urine Nitrite Negative Urine Bilirubin Negative Urine Urobilinogen (Auto) Negative Ur Leukocyte Esterase Negative Urine RBC 1 Urine WBC 0 Ur Squamous Epith Cells 0 Urine Bacteria None Urine Opiates Screen Negative Urine Fentanyl Screen Negative Ur Barbiturates Screen Negative U Amphetamin/Meth Scrn Negative U Benzodiazepines Scrn Negative U Cocaine Metab Screen Negative U Marijuana (THC) Screen Negative Ethyl Alcohol Misc Test Result ABG Interpretation ABG results: 08/10/24 16:48 ABG pH 7.32 L ABG pCO2 45 ABG pO2 42 L* ABG HCO3 23 ABG O2 Saturation 76 L ABG Base Excess -3 Quality Measures Quality Measures none Advance care planning discussed with:: patient Assessment & Plan Assessment Current Active Medications: Generic Name Dose Route Start Last Admin Trade Name Freq PRN Reason Stop Dose Admin Acetaminophen 650 mg 08/10/24 18:07 08/10/24 23:52 Acetaminophen 325 Mg Tablet PO 09/09/24 18:06 650 mg Q6H PRN Administration PAIN OR FEVER > 101 Aspirin 81 mg 08/11/24 09:00 08/11/24 08:30 Aspirin Ec 81 Mg Tabec PO 09/10/24 08:59 81 mg QDAY JASMYNE Administration Atorvastatin Calcium 40 mg 08/10/24 21:00 08/10/24 21:57 Atorvastatin Calcium 20 Mg Tablet PO 09/09/24 20:59 40 mg HS JASMYNE Administration Dextrose 25 ml 08/10/24 18:13 Dextrose 50%-Water Inj 50 Ml Syringe IV 09/09/24 18:12 Q15MIN PRN BG 50-70 responsive npo pt Dextrose 50 ml 08/10/24 18:13 Dextrose 50%-Water Inj 50 Ml Syringe IV 09/09/24 18:12 Q15MIN PRN BG <50 OR BG <70 & pt unresponsive Glucagon 1 mg 08/10/24 18:13 Glucagon Inj 1 Mg Vial IM Q15MIN PRN BG <70, and no IV access Sodium Chloride 1,000 mls @ 100 mls/hr 08/10/24 16:00 08/11/24 10:11 Ns IV 09/09/24 15:59 100 mls/hr .Q10H JASMYNE Administration Insulin Human Lispro 0 unit 08/11/24 11:30 08/11/24 11:48 Insulin Lispro (Admelog) 1 Unit/0.01 Ml Unit SC 09/10/24 11:29 1 unit ACHS JASMYNE Administration Protocol Labetalol HCl 10 mg 08/10/24 18:14 Labetalol Inj 5 Mg/Ml Vial 20 Ml IVP 09/09/24 18:14 Q6H PRN hypertension Levetiracetam 1,000 mg 08/10/24 21:00 08/11/24 08:29 Levetiracetam Inj 100 Mg/Ml Vial 5ml IVP 09/09/24 20:59 1,000 mg Q12HR JASMYNE Administration Ondansetron HCl 4 mg 08/10/24 16:00 Ondansetron Inj 2 Mg/Ml Inj 2 Ml IVP 09/09/24 15:59 Q4HR PRN NAUSEA OR VOMITING Pantoprazole Sodium 40 mg 08/11/24 09:00 08/11/24 08:29 Pantoprazole Inj 40 Mg Vial IVP 09/10/24 08:59 40 mg QDAY JASMYNE Administration Plan 63-year-old male with past medical history of diabetes, seizure on Keppra was presented with chief complaints of dizziness, right-sided weakness and was admitted for stroke workup #Dizziness #Right-sided weakness/numbness #Right facial droop Patient presented with chief complaints of dizziness, right-sided weakness and numbness Physical exam :right lower facial droop, sensation decreased in the right side of the face, strength normal on left side, slightly decreased on the right side. Decreased light touch, pinprick and proprioception on right face, NIHH score was 5 CT head was negative for hemorrhage, mass or midline shift CTA was negative for LVO Activate stroke protocol order set NIHSS score 5 Patient is not a candidate for Thrombolytic therapy,LWK above 4.5 hours. -Admit to telemetry -Neurochecks every 4 -Permissive hypertension -Seizure precaution -Head of bed elevation 30 degree -Aspirin 81 mg daily -Lipitor 40 mg daily -Tylenol as needed to avoid hyperthermia -Euglycemia state -MRI without contrast -Echo ordered -Dr Fajardo was consulted, recommendations appreciated -Physical therapy evaluation. -DVT prophylaxis with SCDs due to risk of bleeding -Control risk factors such as HTN, HLD -Continue to closely monitor and follow-up with results #History of diabetes Home medication is metformin and Januvia -Insulin sliding scale -A1c 6.4 #History of seizure -continue home Keppra -Will follow-up neuro recs Disposition: Telemetry DVT prophylaxis: SCDs GI prophylaxis: PPI Diet: Low carb consistent Lines: PIV CODE STATUS:Full code Patient care was discussed with attending physician Dr.Obad Maren Cedillo MD PGY-2
[2024-08-11] MEDS: ATORVASTATIN CALCIUM 20 MG TABLET 40 MG PO (20:46)
--- NOTE | 2024-08-11 23:53 | VVPN_ITS ---
Telemedicine visit statement This visit was conducted with the use of interactive audio and video telecommunications system that permits real time communication between the patient and the provider. Patient's verbal consent for virtual visit was obtained on 08/10/24 at 2353. Documentation for date of: 08/10/24 Subjective Subjective Interval history: Patient is in telemetry. Complaints of facial numbness and weakness and right sided hemiparesthesias and weakness compared to the left side of sudden onset. 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 Virtual exam Vital Signs Temp Pulse Resp BP Pulse Ox O2 Del Method O2 Flow Rate 98.4 F 85 20 131/95 H 97 Nasal Cannula 1 08/11/24 20:00 08/11/24 20:17 08/11/24 20:17 08/11/24 20:00 08/11/24 20:17 08/11/24 20:00 08/11/24 20:17 Objective Labs 08/12/24 05:08 08/11/24 05:41 Labs: Laboratory Results - last 24 hr 08/11/24 05:41 WBC 5.5 D RBC 3.93 L Hgb 12.6 L Hct 36.1 L MCV 92 MCH 32.1 MCHC 34.9 RDW Std Deviation 43.7 Plt Count 88 L Neut % (Auto) 77 Lymph % (Auto) 20 [place] % (Auto) 2 Eos % (Auto) 0 Baso % (Auto) 0 Neut # (Auto) 4.3 Lymph # (Auto) 1.1 [place] # (Auto) 0.1 Eos # (Auto) 0.0 Baso # (Auto) 0.0 Immature Gran # (Auto) 0.02 H Absolute Nucleated RBC 0.00 Immature Gran % 0 Nucleated RBC % 0 Sodium 142 Potassium 4.5 Chloride 109 H Carbon Dioxide 23.0 Anion Gap 10 BUN 10 Creatinine 0.7 Estim Creat Clear Calc 108.6 eGFR > 60 BUN/Creatinine Ratio 14 [address]ucose [address] Glu mg/dL 137 H Hemoglobin A1c 6.4 H Calculated Osmolality 287 Calcium 8.5 Corrected Calcium 8.8 Phosphorus 1.9 L Magnesium 1.8 Total Bilirubin 1.3 H ALT 44 Alkaline Phosphatase 97 Total Protein 6.4 Albumin 3.6 Globulin 2.8 Albumin/Globulin Ratio 1.3 Triglycerides 52 Cholesterol 118 L LDL Cholesterol, Calc 53 HDL Cholesterol 55 Cholesterol/HDL Ratio 2.1 L TSH 0.47 L ABG Interpretation ABG results: 08/10/24 16:48 ABG pH 7.32 L ABG pCO2 45 ABG pO2 42 L* ABG HCO3 23 ABG O2 Saturation 76 L ABG Base Excess -3 Assessment & Plan Problem List (1) Cerebrovascular accident: Status: Acute Assessment and plan: Follow-up with MRI brain to evaluate for posterior fossa 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 Continue with aspirin and statin, blood sugar control.
--- NOTE | 2024-08-11 23:53 | PD.NEUROPROG ---
Documentation for date of: 08/11/24 Subjective Subjective Interval history: Patient was seen in telemetry today. Continues to complain of facial paresthesias and weakness along with right-sided weakness but improved since admission. Able to tolerate oral diet well. Exam - Neurology Vital Signs Temp Pulse Resp BP Pulse Ox O2 Del Method O2 Flow Rate 98.4 F 85 20 131/95 H 97 Nasal Cannula 1 08/11/24 20:00 08/11/24 20:17 08/11/24 20:17 08/11/24 20:00 08/11/24 20:17 08/11/24 20:00 08/11/24 20:17 Narrative Exam GENERAL APPEARANCE: Well hydrated, well-nourished in no acute distress. HEENT: Normocephalic, atraumatic, extraocular movements intact. Pupils: Equal reacting to light and accommodation, NECK: Supple, no JVD or bruits. CARDIOVASULAR: Heart: S1, S2 heard, regular without S3-S4 or murmur no rubs or gallops. LUNGS/CHEST: Clear to auscultation bilaterally. No rails, rhonchi, or wheezing. Normal inspection. ABDOMEN: Soft, nontender, with normal bowel sounds. No pulsatile masses. No rebound, rigidity, or guarding. Normal inspection and palpation. EXTREMITIES: Normal inspection and palpation. No edema, clubbing or cyanosis. SKIN: Warm and dry without rashes. Normal inspection. MUSCULOSKELETAL: No cervical, thoracic, lumbar or midline bony tenderness. Normal inspection. NEURO: Alert, awake and oriented x3. Cranial nerves: II through XII grossly intact with exception of right facial weakness of upper motor neuron type. Speech and language: Normal with no dysarthria or dysphasia. Motor system: Tone and bulk: Normal: Strength: slight weakness involving the right upper and lower extremities; No pronator drift noted. Deep tendon reflexes: 1+ bilaterally symmetrical. Plantar reflex: Downgoing bilaterally. Sensory system: Intact to all modalities of sensation bilaterally. Coordination: Intact to [id number]-dzra-dhiuf and qava-rbvp-[id number] test bilaterally. No ataxia, no dysmetria, or dysdiadochokinesia noted. No intention tremors noted. Gait: Not tested. No signs of meningeal irritation noted. PSYCHIATRIC: Normal mood and affect. Objective Labs 08/12/24 05:08 08/11/24 05:41 Labs: Laboratory Results - last 24 hr 08/11/24 05:41 WBC 5.5 D RBC 3.93 L Hgb 12.6 L Hct 36.1 L MCV 92 MCH 32.1 MCHC 34.9 RDW Std Deviation 43.7 Plt Count 88 L Neut % (Auto) 77 Lymph % (Auto) 20 [place] % (Auto) 2 Eos % (Auto) 0 Baso % (Auto) 0 Neut # (Auto) 4.3 Lymph # (Auto) 1.1 [place] # (Auto) 0.1 Eos # (Auto) 0.0 Baso # (Auto) 0.0 Immature Gran # (Auto) 0.02 H Absolute Nucleated RBC 0.00 Immature Gran % 0 Nucleated RBC % 0 Sodium 142 Potassium 4.5 Chloride 109 H Carbon Dioxide 23.0 Anion Gap 10 BUN 10 Creatinine 0.7 Estim Creat Clear Calc 108.6 eGFR > 60 BUN/Creatinine Ratio 14 Glucose [address] Glu mg/dL 137 H Hemoglobin A1c 6.4 H Calculated Osmolality 287 Calcium 8.5 Corrected Calcium 8.8 Phosphorus 1.9 L Magnesium 1.8 Total Bilirubin 1.3 H ALT 44 Alkaline Phosphatase 97 Total Protein 6.4 Albumin 3.6 Globulin 2.8 Albumin/Globulin Ratio 1.3 Triglycerides 52 Cholesterol 118 L LDL Cholesterol, Calc 53 HDL Cholesterol 55 Cholesterol/HDL Ratio 2.1 L TSH 0.47 L ABG Interpretation ABG results: 08/10/24 16:48 ABG pH 7.32 L ABG pCO2 45 ABG pO2 42 L* ABG HCO3 23 ABG O2 Saturation 76 L ABG Base Excess -3 Assessment & Plan Assessment and plan (1) Cerebrovascular accident: Status: Acute Assessment and plan: 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 Continue with aspirin and statin and blood sugar control. Follow-up with MRI brain
[2024-08-12] VITALS (7 sets, daily range): BP systolic 113–149; BP diastolic 72–91; PULSE 63–81; RESP 16–27; TEMP 36.2–37.1; O2SAT 95–99; BMI 37.8
--- NOTE | 2024-08-12 | XR_ITS ---
Examinations: MRI Brain without intravenous contrast. MRA brain without intravenous contrast. MRA carotids without intravenous contrast 3-D vascular reconstructions Date and time of exam: August 12, 2024 1131 hours INDICATIONS: Diabetes, seizures, onset right-sided body weakness beginning August 11, 2024 Technique: Multiple axial and sagittal images of the brain have been obtained MRA brain carotid images without contrast obtained, including 3-D postprocessing, vascular maximum intensity projection images Findings: [place] is not enlarged. The optic chiasm and infundibular stalk are not remarkable. Prepontine and interpeduncular cisterns are not enlarged. No localized enlargement of the medulla or alicia. Fourth ventricle and cerebellar tonsils normal in position. Subacute hemorrhage is not seen. Fourth ventricle is midline. Mass in the cerebellopontine angle region is not evident. 7th and 8th nerve complexes exhibits symmetry. Globes are symmetrical with no retro-orbital mass. Increased white matter signal evident in the left frontal lobe with scattered punctate foci increased signal in the white matter Diffusion-weighted images demonstrate no focus of restricted diffusion Mass-effect upon the ventricular system is not identified. MRA carotid images degraded by patient motion. MRA brain images , poor quality, no gross large vessel occlusions Impression: Negative for acute hemorrhage mass effect or midline shift No acute infarct Encephalomalacia left frontal lobe
[2024-08-12 06:02] LABS: Basophils % (Auto) 1 % (0-2.5); Eosinophils % (Auto) 0 % (0-10); Hematocrit 33.4 % (41.0-53.0); Hemoglobin 12.1 g/dL (13.5-16.0); Immature Granulocytes % (Auto) 0 % (0-0); Immature Granulocytes Auto 0.02 Thou/mm3 (0.00-0.00); Lymphocytes # (Auto) 2.4 Thou/mm3 (1.0-4.8); Lymphocytes % (Auto) 30 % (10-50); Mean Corpuscular HGB Conc 36.2 g/dl (31.0-37.0); Mean Corpuscular Hemoglobin 32.6 pg (25.0-35.0); Mean Corpuscular Volume 90 fL (80-100); Monocytes # (Auto) 0.7 Thou/mm3 (0.0-0.8); Monocytes % (Auto) 9 % (0-12); Neutrophils # (Auto) 4.7 Thou/mm3 (1.8-7.7); Neutrophils % (Auto) 59 % (37-80); Nucleated Red Blood Cell % 0 /100 WBC (0); Platelet Count 86 Thou/mm3 (140-440); RDW Standard Deviation 43.8 fL (35.1-43.9); Red Blood Count 3.71 Miln/mm3 (4.50-5.90); White Blood Count 7.8 Thou/mm3 (3.8-10.6)
[2024-08-12 06:34] LABS: Alanine Aminotransferase 42 U/L (10-49); Albumin, Serum 3.4 gm/dL (3.4-4.8); Albumin/Globulin Ratio 1.3 (1.2-2.2); Alkaline Phosphatase 87 U/L (46-116); Anion Gap 11 (7-16); BUN/Creatinine Ratio 16 Ratio (12-20); Blood Urea Nitrogen 11 mg/dL (9-23); Calcium 8.2 mg/dL (8.3-10.6); Calcium (Corrected) 8.7 mg/dL (8.5-10.1); Carbon Dioxide 23.3 mMol/L (20.0-31.0); Chloride 111 mMol/L (98-107); Creatinine (Component) 0.7 mg/dL (0.6-1.3); Estimated Creatinine Clearance 108.5 mL/min (>60); Globulin 2.6 gm/dL (2.3-3.5); Glucose 150 mg/dL (74-106); Magnesium 1.9 mg/dL (1.6-2.6); Osmolality,Calculated 291 (275-295); Phosphorous 2.5 mg/dL (2.4-5.1); Potassium 3.8 mMol/L (3.4-5.1); Sodium 145 mMol/L (136-145); eGFR > 60 See Note
[2024-08-12] MEDS: SODIUM CHLORIDE 0.9% 1000 ML 1,000 ML 100 ML IV (08:04)
[2024-08-12] MEDS: ASPIRIN EC 81 MG TABEC PO (08:06)
[2024-08-12] MEDS: PANTOPRAZOLE INJ 40 MG VIAL IVP (08:06)
[2024-08-12] MEDS: levETIRAcetam INJ 100 MG/ML VIAL 5ML 1000 MG IVP ×2 (08:07→21:25)
[2024-08-12 08:43] LABS: Free T4 (Free Thyroxine) 0.98 ng/dL (0.89-1.76)
[2024-08-12] MEDS: INSULIN LISPRO (AdmeLOG) 1 UNIT/0.01 ML UNIT SC ×3 (10:52→21:30)
--- NOTE | 2024-08-12 11:57 | PD.RESPRO ---
Documentation for date of: 08/12/24 Subjective Subjective Interval history: No acute overnight events. Seen and examined at bedside and patient continues to endorse weakness in the right upper and lower extremities and rigth side of face. Additionally endorses paresthesias on right side as well but have improved compared to when he was admitted. Otherwise, he does not have any other complaints. Per neurology recommendations, will continue with aspirin and atorvastatin and will await MRI, echo read, and physical therapy recommendations. Exam Vital Signs Temp Pulse Resp BP Pulse Ox O2 Del Method O2 Flow Rate 97.7 F 69 19 122/72 98 Nasal Cannula 1 08/12/24 08:00 08/12/24 08:00 08/12/24 08:00 08/12/24 08:00 08/12/24 08:00 08/12/24 08:00 08/12/24 08:00 Narrative Exam General: AOx3, no acute distress, able to speak full sentences HEENT: NC/AT, mucous membranes moist, bilateral sclera anicteric Cardiovascular: regular rate and rhythm, S1/S2 present, no murmurs appreciated Pulmonary: clear to auscultation bilaterally, no rales/rhonchi/wheezes Abdominal: soft, non-tender, non-distended, no rebound/guarding, normal bowel sounds present Musculoskeletal: normal ROM, no peripheral edema Skin: warm and dry, intact, no rashes Neuro: - Paresthesia in right body and face - Strength in right upper and lower extremity 5/5 but weaker than left - Right-sided facial muscle weakness notable when closing eyes and smiling Objective Labs 08/13/24 05:14 08/13/24 05:14 Labs: Laboratory Results - last 24 hr 08/12/24 05:08 WBC 7.8 D RBC 3.71 L Hgb 12.1 L Hct 33.4 L MCV 90 MCH 32.6 MCHC 36.2 RDW Std Deviation 43.8 Plt Count 86 L Neut % (Auto) 59 Lymph % (Auto) 30 [place] % (Auto) 9 Eos % (Auto) 0 Baso % (Auto) 1 Neut # (Auto) 4.7 Lymph # (Auto) 2.4 [place] # (Auto) 0.7 Eos # (Auto) 0.0 Baso # (Auto) 0.0 Immature Gran # (Auto) 0.02 H Absolute Nucleated RBC 0.00 Immature Gran % 0 Nucleated RBC % 0 Sodium 145 Potassium 3.8 D Chloride 111 H Carbon Dioxide 23.3 Anion Gap 11 BUN 11 Creatinine 0.7 Estim Creat Clear Calc 108.5 eGFR > 60 BUN/Creatinine Ratio 16 Glucose 150 H Calculated Osmolality 291 Calcium 8.2 L Corrected Calcium 8.7 Phosphorus 2.5 Magnesium 1.9 Total Bilirubin 1.0 ALT 42 Alkaline Phosphatase 87 Total Protein 6.0 Albumin 3.4 Globulin 2.6 Albumin/Globulin Ratio 1.3 Free T4 0.98 ABG Interpretation ABG results: 08/10/24 16:48 ABG pH 7.32 L ABG pCO2 45 ABG pO2 42 L* ABG HCO3 23 ABG O2 Saturation 76 L ABG Base Excess -3 Quality Measures Quality Measures none Advance care planning discussed with:: patient Assessment & Plan Assessment Current Active Medications: Generic Name Dose Route Start Last Admin Trade Name Freq PRN Reason Stop Dose Admin Acetaminophen 650 mg 08/10/24 18:07 08/10/24 23:52 Acetaminophen 325 Mg Tablet PO 09/09/24 18:06 650 mg Q6H PRN Administration PAIN OR FEVER > 101 Aspirin 81 mg 08/11/24 09:00 08/12/24 08:06 Aspirin Ec 81 Mg Tabec PO 09/10/24 08:59 81 mg QDAY JASMYNE Administration Atorvastatin Calcium 40 mg 08/10/24 21:00 08/11/24 20:46 Atorvastatin Calcium 20 Mg Tablet PO 09/09/24 20:59 40 mg HS JASMYNE Administration Dextrose 25 ml 08/10/24 18:13 Dextrose 50%-Water Inj 50 Ml Syringe IV 09/09/24 18:12 Q15MIN PRN BG 50-70 responsive npo pt Dextrose 50 ml 08/10/24 18:13 Dextrose 50%-Water Inj 50 Ml Syringe IV 09/09/24 18:12 Q15MIN PRN BG <50 OR BG <70 & pt unresponsive Glucagon 1 mg 08/10/24 18:13 Glucagon Inj 1 Mg Vial IM Q15MIN PRN BG <70, and no IV access Sodium Chloride 1,000 mls @ 100 mls/hr 08/10/24 16:00 08/12/24 08:04 Ns IV 09/09/24 15:59 100 mls/hr .Q10H JASMYNE Administration Insulin Human Lispro 0 unit 08/11/24 11:30 08/12/24 10:52 Insulin Lispro (Admelog) 1 Unit/0.01 Ml Unit SC 09/10/24 11:29 1 unit ACHS JASMYNE Administration Protocol Labetalol HCl 10 mg 08/10/24 18:14 Labetalol Inj 5 Mg/Ml Vial 20 Ml IVP 09/09/24 18:14 Q6H PRN hypertension Levetiracetam 1,000 mg 08/10/24 21:00 08/12/24 08:07 Levetiracetam Inj 100 Mg/Ml Vial 5ml IVP 09/09/24 20:59 1,000 mg Q12HR JASMYNE Administration Ondansetron HCl 4 mg 08/10/24 16:00 Ondansetron Inj 2 Mg/Ml Inj 2 Ml IVP 09/09/24 15:59 Q4HR PRN NAUSEA OR VOMITING Pantoprazole Sodium 40 mg 08/11/24 09:00 08/12/24 08:06 Pantoprazole Inj 40 Mg Vial IVP 09/10/24 08:59 40 mg QDAY JASMYNE Administration Plan Jay Burns is a 63-year-old male with past medical history of type 2 diabetes mellitus and history of seizures on Keppra who presented with chief complaint of dizziness, right-sided weakness, and admitted for stroke workup. #Dizziness #Right-sided weakness/numbness #Right facial droop #? CVA Presented with chief complaint of dizziness, right-sided weakness and numbness that started on the morning of admission. CT head and CTA head/neck unremarkable, was not a candidate for thrombolytic therapy as last known well was greater than 4.5 hours prior to admission. On exam, right-sided facial muscle weakness noted, slight weakness send in right upper and lower extremities compared to left, paresthesia on right side. ? In-house neurology following, appreciate recommendations ? Aspirin 81 mg and atorvastatin 40 mg daily ? Follow-up MRI ? Follow-up echo ? Follow-up physical therapy ? SCDs for DVT prophylaxis given risk of bleeding ? Control risk factors such as hypertension and hyperlipidemia #History of type II diabetes mellitus A1c 6.4% ? SSI #History of seizures ? Keppra 1 g IV twice daily ? Seizure precautions Hospital management: Disposition: pending MRI, echo read, and PT Fluids: NS at 100 cc/hr Diet: carb consistent Lines: PIV DVT prophylaxis: SCDs GI prophylaxis: pantoprazole 40 mg IV daily CODE STATUS: full code ----- Plan discussed with attending physician Dr. Olinda Malcolm MD PGY-1 Internal Medicine Attending Provider Attestation/Addendum IMony DO, attest that I was physically present for the guillermo portions of the service and evaluated the patient with the resident and I reviewed and discussed the case with the resident and agree with the resident's findings and plans of care as documented above Patient seen and evaluated this afternoon. No acute events overnight. He states that he is feeling well. However, patient did complain of some dizziness in the morning. Pending MRI today. He continues to have some left facial palsy
--- NOTE | 2024-08-12 14:58 | PC.SS ---
Late entry, rounding note: MRI and PT evaluation are both pending. Patient to discharge home when medically clear.
[2024-08-12] MEDS: ATORVASTATIN CALCIUM 20 MG TABLET 40 MG PO (21:27)
--- NOTE | 2024-08-12 23:39 | ESPR_ITS ---
Documentation for date of: 08/12/24 Subjective Subjective Interval history: Patient was seen in telemetry today. Continues to complain of facial paresthesias and weakness along with right-sided weakness but improved since admission. Able to tolerate oral diet well. Exam - Neurology Vital Signs Temp Pulse Resp BP Pulse Ox O2 Del Method O2 Flow Rate 97.2 F 69 27 H 149/86 H 97 Room Air 1 08/12/24 20:00 08/12/24 20:00 08/12/24 20:00 08/12/24 20:00 08/12/24 20:00 08/12/24 20:00 08/12/24 08:00 Narrative Exam GENERAL APPEARANCE: Well hydrated, well-nourished in no acute distress. HEENT: Normocephalic, atraumatic, extraocular movements intact. Pupils: Equal reacting to light and accommodation, NECK: Supple, no JVD or bruits. CARDIOVASULAR: Heart: S1, S2 heard, regular without S3-S4 or murmur no rubs or gallops. LUNGS/CHEST: Clear to auscultation bilaterally. No rails, rhonchi, or wheezing. Normal inspection. ABDOMEN: Soft, nontender, with normal bowel sounds. No pulsatile masses. No rebound, rigidity, or guarding. Normal inspection and palpation. EXTREMITIES: Normal inspection and palpation. No edema, clubbing or cyanosis. SKIN: Warm and dry without rashes. Normal inspection. MUSCULOSKELETAL: No cervical, thoracic, lumbar or midline bony tenderness. Normal inspection. NEURO: Alert, awake and oriented x3. Cranial nerves: II through XII grossly intact with exception of right facial weakness of LMN type. Speech and language: Normal with no dysarthria or dysphasia. Motor system: Tone and bulk: Normal: Strength: slight weakness involving the right upper and lower extremities; No pronator drift noted. Deep tendon reflexes: 1+ bilaterally symmetrical. Plantar reflex: Downgoing bilaterally. Sensory system: Intact to all modalities of sensation bilaterally. Coordination: Intact to [id number]-[id number] and xolo-hsxe-fzyr test bilaterally. No ataxia, no dysmetria, or dysdiadochokinesia noted. No intention tremors noted. Gait: Not tested. No signs of meningeal irritation noted. PSYCHIATRIC: Normal mood and affect. Objective Labs 08/12/24 05:08 08/12/24 05:08 Labs: Laboratory Results - last 24 hr 08/12/24 05:08 WBC 7.8 D RBC 3.71 L Hgb 12.1 L Hct 33.4 L MCV 90 MCH 32.6 MCHC 36.2 RDW Std Deviation 43.8 Plt Count 86 L Neut % (Auto) 59 Lymph % (Auto) 30 [place] % (Auto) 9 Eos % (Auto) 0 Baso % (Auto) 1 Neut # (Auto) 4.7 Lymph # (Auto) 2.4 [place] # (Auto) 0.7 Eos # (Auto) 0.0 Baso # (Auto) 0.0 Immature Gran # (Auto) 0.02 H Absolute Nucleated RBC 0.00 Immature Gran % 0 Nucleated RBC % 0 Sodium 145 Potassium 3.8 D Chloride 111 H Carbon Dioxide 23.3 Anion Gap 11 BUN 11 Creatinine 0.7 Estim Creat Clear Calc 108.5 eGFR > 60 BUN/Creatinine Ratio 16 Glucose 150 H Calculated Osmolality 291 Calcium 8.2 L Corrected Calcium 8.7 Phosphorus 2.5 Magnesium 1.9 Total Bilirubin 1.0 ALT 42 Alkaline Phosphatase 87 Total Protein 6.0 Albumin 3.4 Globulin 2.6 Albumin/Globulin Ratio 1.3 Free T4 0.98 ABG Interpretation ABG results: 08/10/24 16:48 ABG pH 7.32 L ABG pCO2 45 ABG pO2 42 L* ABG HCO3 23 ABG O2 Saturation 76 L ABG Base Excess -3 Assessment & Plan Assessment and plan (1) Right-sided Calles's palsy: Status: Acute Assessment and plan: will start him on valcyclovir 1000 mg bid for 10 days and Prednisone 60 mg for 5 days followed by slow taper by 10 mg qd for another 5 days with tight control of blood sugar. Facial massage, exercises for strengthening the facial muscles. Artificial tears and making sure that he is able to close his right eye to prevent dryness leading to corneal ulceration. Stable from Neuro stand point for d/c home and will see him in 2 weeks for follow up. Refer him to PT (2) TIA (transient ischemic attack): Status: Acute Assessment and plan: reassured him regarding the negative MRI brain for acute infarction continue with ASA and statin, blood sugar control
[2024-08-13] VITALS: BP 140/82; PULSE 66; PULSE 71; RESP 16; TEMP 36.9; O2SAT 97
[2024-08-13] MEDS: ACETAMINOPHEN 325 MG TABLET 650 MG PO ×2 (00:43→14:09)
[2024-08-13] MEDS: SODIUM CHLORIDE 0.9% 1000 ML 1,000 ML 100 ML IV ×2 (00:43→11:43)
[2024-08-13 04:00] VITALS: BP 133/80; PULSE 80; PULSE 94; RESP 22; TEMP 36.9; O2SAT 96
[2024-08-13 04:57] VITALS: BMI 39.1
[2024-08-13 05:36] LABS: Basophils % (Auto) 1 % (0-2.5); Eosinophils # (Auto) 0.1 Thou/mm3 (0.0-0.5); Eosinophils % (Auto) 2 % (0-10); Hematocrit 33.7 % (41.0-53.0); Hemoglobin 12.4 g/dL (13.5-16.0); Immature Granulocytes % (Auto) 0 % (0-0); Immature Granulocytes Auto 0.01 Thou/mm3 (0.00-0.00); Lymphocytes # (Auto) 2.3 Thou/mm3 (1.0-4.8); Lymphocytes % (Auto) 44 % (10-50); Mean Corpuscular HGB Conc 36.8 g/dl (31.0-37.0); Mean Corpuscular Hemoglobin 32.8 pg (25.0-35.0); Mean Corpuscular Volume 89 fL (80-100); Monocytes # (Auto) 0.6 Thou/mm3 (0.0-0.8); Monocytes % (Auto) 11 % (0-12); Neutrophils # (Auto) 2.2 Thou/mm3 (1.8-7.7); Neutrophils % (Auto) 43 % (37-80); Nucleated Red Blood Cell % 0 /100 WBC (0); RDW Standard Deviation 43.9 fL (35.1-43.9); Red Blood Count 3.78 Miln/mm3 (4.50-5.90); White Blood Count 5.2 Thou/mm3 (3.8-10.6)
[2024-08-13 05:40] LABS: Platelet Count 77 Thou/mm3 (140-440)
[2024-08-13 06:07] LABS: Slide Review Platelets confirmed
[2024-08-13 06:09] LABS: Alanine Aminotransferase 67 U/L (10-49); Albumin, Serum 3.4 gm/dL (3.4-4.8); Albumin/Globulin Ratio 1.3 (1.2-2.2); Alkaline Phosphatase 91 U/L (46-116); Anion Gap 12 (7-16); BUN/Creatinine Ratio 13 Ratio (12-20); Bilirubin,Total 0.8 mg/dL (0.3-1.2); Blood Urea Nitrogen 9 mg/dL (9-23); Calcium (Corrected) 8.5 mg/dL (8.5-10.1); Carbon Dioxide 24.5 mMol/L (20.0-31.0); Chloride 110 mMol/L (98-107); Creatinine (Component) 0.7 mg/dL (0.6-1.3); Estimated Creatinine Clearance 110.4 mL/min (>60); Globulin 2.6 gm/dL (2.3-3.5); Glucose 125 mg/dL (74-106); Magnesium 1.9 mg/dL (1.6-2.6); Osmolality,Calculated 290 (275-295); Phosphorous 3.1 mg/dL (2.4-5.1); Potassium 3.8 mMol/L (3.4-5.1); Sodium 146 mMol/L (136-145); eGFR > 60 See Note
[2024-08-13 08:00] VITALS: BP 140/83; PULSE 74; PULSE 80; RESP 14; TEMP 36.4; O2SAT 95
[2024-08-13] MEDS: levETIRAcetam INJ 100 MG/ML VIAL 5ML 1000 MG IVP (08:01)
[2024-08-13] MEDS: ASPIRIN EC 81 MG TABEC PO (08:01)
[2024-08-13] MEDS: PANTOPRAZOLE INJ 40 MG VIAL IVP (08:01)
--- NOTE | 2024-08-13 10:37 | ESDS_ITS ---
Planned Discharge Date 08/13/24 DS: Providers Provider Date of admission: 08/10/24 18:07 Primary care physician: Physician No Primary/Family Admitting Provider: Ifeoma Darling MD Attending Provider on Admission: Ifeoma Darling MD Consults: 08/10/24 16:01 Consult to Neurology / Tele-Neurology Routine Comment: Consulting Provider: [facility] 08/10/24 18:13 Referral Physical Therapy Routine Comment: Physician Instructions: 08/10/24 18:17 Consult to Neurology / Tele-Neurology Stat Comment: Consulting Provider: Damien Fajardo Attending Provider on DC: Ron Malcolm MD Discharging Provider: Ron Malcolm MD DS: Diagnosis Problem List Completed Was Problem List Reviewed/Reconciled?: Yes Hospital Course Hospital Course Hospital course: Jay Burns is a 63-year-old male with past medical history of type 2 diabetes mellitus and history of seizures on Kera who presented with chief complaint of dizziness, right-sided weakness, and admitted for stroke workup. Presented with chief complaint of weakness and numbness in his right upper and lower extremities and right side of face that started in the morning of his presentation. He also had associated right ear pain and headache and noted to have completed a 15-day course of antiviral treatment 15 days prior to admission. CT head obtained and did not show any acute pathologies, CTA head/neck did not show any acute abnormalities, and echo with bubble study unremarkable. MRI also obtained and showed encephalomalacia of the left frontal lobe but otherwise no other findings. Neurology consulted and has a history of Calles's palsy years ago. On exam, strength 5/5 in upper and lower extremities bilaterally but noticeable right-sided facial muscle weakness noted. Thus, neurology recommended treatment for right-sided Calles's palsy as well as TIA, including valacyclovir 1 g twice daily x 10 days and prednisone taper as well as aspirin and statin, respectively. Otherwise, throughout hospitalization no acute events occurred, vital signs remained stable, and labs largely unremarkable. Thus, patient deemed stable for discharge and will follow-up with neurology outpatient. Diagnoses during admission: #Dizziness #Right-sided weakness/numbness #Right-sided Calles's palsy #TIA #History of type II diabetes mellitus #History of seizures Discharge instructions: ? Take valacyclovir (Valtrex) twice per day for a total of ten days ? Take steroids and follow instructions for tapering schedule ? Your atorvastatin dose has been increased ? Take artificial tears and close right eye to prevent dryness that may lead to corneal ulceration ? Continue taking all other home medications as prescribed ? Follow-up with neurologist, Dr. Fajardo, within 1-2 weeks of discharge ? Follow-up with PCP within 1-2 weeks of discharge ? If you do not have a PCP, you can follow-up at the [facility] (you can call [phone] to make an appointment) ? If you wish to follow-up with Dr. Malcolm, schedule appointment on Monday afternoons ? Return to ED if symptoms worsen or recur ----- Plan discussed with attending physician Dr. Helio Malcolm MD PGY-1 Internal Medicine Time Spent with Patient Time attestation: Total time spent providing and/or coordinating discharge services: Time spent: Greater than 30 minutes Exam Vital Signs Temp Pulse Resp BP Pulse Ox O2 Del Method O2 Flow Rate 97.5 F 74 14 140/83 H 95 Room Air 1 08/13/24 08:00 08/13/24 08:00 08/13/24 08:00 08/13/24 08:00 08/13/24 08:00 08/13/24 08:00 08/12/24 08:00 Narrative Exam General: AOx3, no acute distress, able to speak full sentences HEENT: NC/AT, mucous membranes moist, bilateral sclera anicteric Cardiovascular: regular rate and rhythm, S1/S2 present, no murmurs appreciated Pulmonary: clear to auscultation bilaterally, no rales/rhonchi/wheezes Abdominal: soft, non-tender, non-distended, no rebound/guarding, normal bowel sounds present Musculoskeletal: normal ROM, no peripheral edema Skin: warm and dry, intact, no rashes Neuro: - Paresthesia in right body and face - Strength in right upper and lower extremity 5/5 but weaker than left - Right-sided facial muscle weakness notable when closing eyes and smiling Discharge Plan Plan Patient Disposition: HOME (Self Care) Care Plan Goals: ? Take valacyclovir (Valtrex) twice per day for a total of ten days ? Take steroids and follow instructions for tapering schedule ? Your atorvastatin dose has been increased ? Take artificial tears and close right eye to prevent dryness that may lead to corneal ulceration ? Continue taking all other home medications as prescribed ? Follow-up with neurologist, Dr. Fajardo, within 1-2 weeks of discharge ? Follow-up with PCP within 1-2 weeks of discharge ? If you do not have a PCP, you can follow-up at the [facility] (you can call [phone] to make an appointment) ? If you wish to follow-up with Dr. Malcolm, schedule appointment on Monday afternoons ? Return to ED if symptoms worsen or recur Prescriptions/Referrals Prescriptions/Med Rec: New valacyclovir [Valtrex] 1 gram tablet 1,000 mg PO BID 10 Days Qty: 20 0RF prednisone 10 mg tablet See Taper PO QDAY Qty: 45 0RF Taper: Prednisone Taper 60 mg DAILY for 5 Days and 0 Hour 50 mg DAILY for 1 Day and 0 Hour 40 mg DAILY for 1 Day 30 mg DAILY for 1 Day 20 mg DAILY for 1 Day 10 mg DAILY for 1 Day atorvastatin 40 mg tablet 40 mg PO QDAY Qty: 30 0RF artifi.tears(hypromellose)(PF) 1.7 % drops with applicator 1 drp ophthalmic (eye) QDAY Qty: 12 0RF Rx Instructions: For right eye pantoprazole 40 mg tablet,delayed release (DR/EC) 40 mg PO QDAY Qty: 30 0RF Continued metformin 1,000 mg Tablet 1,000 mg PO BID levetiracetam [Keppra] 1,000 mg Tablet 1,000 mg PO BID aspirin 81 mg tablet,chewable 81 mg PO DAILY Patient Comments: chew and swallow 1 tablet by mouth once daily Januvia 50 mg Tablet 50 mg PO QDAY Discontinued atorvastatin 10 mg tablet 10 mg PO DAILY Patient Comments: take 1 tablet by mouth once daily Referrals: No Primary/Family,Physician [Primary Care Provider] - Patient/Caregiver Discharge Instructions Education Materials: What Is a TIA?, Calles's Palsy, Risk Factors for Stroke Print Language: Pashto Stand Alone Forms: [facility] Award Info., Patient Portal Info Letter Discharge Order Discharge Orders: Discharge (Routine); Ordered 08/13/24 Ordered By: Ron Malcolm Quality Discharge Quality Measures VTE prophylaxis Attestestation Attestation I have examined the patient, reviewed labs and imaging findings, discussed the case with the resident(s), and reviewed entered orders. I agree with the plan of care as outlined in this note. Time Spent: [address] Helio MD
[2024-08-13] MEDS: INSULIN LISPRO (AdmeLOG) 1 UNIT/0.01 ML UNIT SC (11:30)
[2024-08-13 11:54] VITALS: BP 128/77; PULSE 67; RESP 18; TEMP 36.4; O2SAT 98
[2024-08-13 12:00] VITALS: PULSE 72
--- NOTE | 2024-08-13 13:47 | PC.SS ---
Addendum entered by Lakisha Dunham 08/13/24 14:38: [facility] contact information for [facility] provided to patient at bedside. SS encouraged patient to contact [facility] directly for any questions regarding referral. Addendum entered by Lakisha Dunham 08/13/24 14:26: PT Eval note submitted to [facility] via [email or web address]. SS awaiting response from [facility]. Original Note: SS informed by PT Lakisha patient is needing a FW. SS submitted referral to DME companies via [email or web address]. Accepting DME company is [facility]. PT eval note pending completion. Once completed, it will be submitted to [facility] for final review.
[2024-08-13 16:20] VITALS: BP 145/87; PULSE 69; RESP 21; TEMP 36.3; O2SAT 97
== END 2024-08-13 16:35 | disposition home or self-care (01) | DRG 47 ==
LOC: SERX 17:56 → SERHOLD 18:29 → S2NX 21:30
PROVIDERS: Student in an Organized Health Care Education/Training Program; Admitting Provider Student in an Organized Health Care Education/Training Program; Emergency Provider Family Medicine; Visit Provider Student in an Organized Health Care Education/Training Program
DX: G45.9 Transient cerebral ischemic attack, unspecified (principal); R20.2 Paresthesia of skin; G40.909 Epilepsy, unspecified, not intractable, without status epilepticus; E11.9 Type 2 diabetes mellitus without complications; G51.0 Bell's palsy; D69.6 Thrombocytopenia, unspecified; H55.00 Unspecified nystagmus; G93.89 Other specified disorders of brain; R53.1 Weakness; Z88.0 Allergy status to penicillin; Z79.84 Long term (current) use of oral hypoglycemic drugs; Z79.82 Long term (current) use of aspirin; Z79.899 Other long term (current) drug therapy
CPT/HCPCS: 36415; 36600; 70450; 70496; 70498; 70544; 76705; 80053; 80061; 80307; 80320; 81001; 82803; 83036; 83735; 83880; 84100; 84439; 84443; 84484; 85025; 85610; 85730; 87086; 92610; 93005; 93306; 96374; 96375; 97162; 99291; A4649; J1100; J1200; J1815; J1953; J2470; J3490; J7030; Q9967; A9270; G0480